=== PATIENT | male | born 1980 | race African-American/Black ===

== ENCOUNTER 2018-07-20 09:56 | Emergency (ER) | payer OTHER ==
[~2018-07-20] VITALS: Ht 180.3 cm; Wt 81.7 kg
[2018-07-20] MEDS ORDERED: NAPROSYN500 MG PO (10:42)
[2018-07-20 11:09] VITALS: BP 129/81
== END 2018-07-20 11:10 | disposition home or self-care (01) ==
LOC: ER 09:56
DX: S40.011A Contusion of right shoulder, initial encounter (principal); X58.XXXA Exposure to other specified factors, initial encounter; Y93.89 Activity, other specified; Y92.89 Other specified places as the place of occurrence of the external cause; Y99.8 Other external cause status